=== PATIENT | female | born 1945 | race Caucasian/White ===

== ENCOUNTER 2024-08-10 08:54 | Outpatient (CLI) | payer MEDICARE, OTHER, SELFPAY ==
--- NOTE | ~2024-08-10 | DEXA_ITS ---
Bone Density Report Name: ANDRES BEATTY Age: 78 Sex: Female Ethnicity: White Date of : 1945 Indication: postmenopausal; screening for osteoporosis; history of glucocorticoids; Referring Provider: GRANT, YOU Study: Bone densitometry was performed. Exam Date: August 10, 2024 Accession number: [id number] Bone Density: Region BMD T-score Z-score Classification AP Spine(L1-L4) 0.931 -1.1 1.6 Osteopenia Femoral Neck (Left) 0.726 -1.1 1.1 Osteopenia Total Hip (Left) 0.827 -0.9 1.0 Normal Femoral Neck (Right) 0.649 -1.8 0.4 Osteopenia Total Hip (Right) 0.820 -1.0 1.0 Normal Total Hip Mean 0.823 -1.0 1.0 Normal World Health Organization criteria for BMD impression classify patients as: Normal (T-score at or above -1.0), Osteopenia (T-score between -1.0 and -2.5), or Osteoporosis (T-score at or below -2.5). 10-year Fracture Risk(1): Major Osteoporotic Fracture 21% Hip Fracture 6.2% Reported Risk Factors: [place] (), Neck BMD=0.649, BMI=25.3, glucocorticoids (1) FRAX(R) Version 3.08. Fracture probability calculated for an untreated patient. Fracture probability may be lower if the patient has received treatment. Clinical Information Provided by Patient: Menopause Age: 50 Impression: The patient has low bone mass, based on the Right Femoral Neck T-score. The patient has an estimated ten-year risk of hip fracture of 6.2% and an estimated ten-year risk of major fracture of 21%, based on the WHO FRAX algorithm. The patient has risk factors, including: history of glucocorticoid therapy. Discussion: BONE DENSITY IS LOW AT ONE OR MORE SKELETAL SITES. THE PATIENT'S BMD AND CLINICAL RISK FACTORS CONTRIBUTE TO THIS PATIENT'S HIGH RISK OF FRACTURE. This patient's lowest T-score is low at one or more skeletal sites. It meets the World Health Organization's (WHO) criteria for ?low bone mass? (T-score between -1.0 and -2.5). The patient's 10-year risk of hip fracture and 10 year risk of a major osteoporotic fracture as calculated by FRAX exceeds the threshold where pharmacological therapy is recommended by the National Osteoporosis Foundation (NOF). However, all treatment decisions require clinical judgment and consideration of individual patient factors, including patient preferences, comorbidities, previous drug use, risk factors not captured in the FRAX model (e.g., frailty, falls, vitamin D deficiency, increased bone turnover, interval significant decline in bone density) and possible under or overestimation of fracture risk by FRAX. The patient should follow a healthful lifestyle (good nutrition with adequate calcium and vitamin D, and appropriate weight-bearing exercise). Follow-Up: Consider a repeat BMD and Vertebral Fracture Assessment (VFA) exam in 2 years or sooner if medically necessary, to reassess this patient's status. Reported by: VENITA on 08/10/2024 9:48:00 AM. Reviewed, dictated and finalized at location ANorah COWAN
--- NOTE | ~2024-08-10 | MM_ITS ---
EXAMINATION: MM screening sylvain BI w irma HISTORY: Screening TECHNIQUE: Craniocaudal and mediolateral oblique 3-D tomosynthesis images were obtained and synthetic 2-D images were generated. CAD analysis was submitted and interpreted. COMPARISON: 03/22/2008 BREAST PARENCHYMAL COMPOSITION: Not dense: There are scattered areas of fibroglandular density. FINDINGS: There is no evidence of suspicious mass, calcification, or architectural distortion to sugg est malignancy in either breast. There has been no suspicious interval change. IMPRESSION: 1. No mammographic evidence of malignancy. 2. Recommend routine screening mammography in one year. BI-RADS Category 1: Negative Reviewed, dictated and finalized at location B. ICATION AND LAYOUT CRAFTSMAN
--- OUTSIDE RECORDS SUMMARY | 2024-08-10 09:26 | XMS_ITS ---
Author Organization Unknown Medications Medication Instructions Effective Dates (start - stop) Status atorvastatin 40 MG Oral Tablet 2023-10-01 T00:00:00Z - Completed doxycycline hyclate 100 MG O ral Capsule - Completed mycophenolate mofetil 500 MG Oral Tablet - Completed mycophenolate mofetil 500 MG Oral Tablet - Completed erythromycin 0.005 MG/MG Ophthalmic Ointment - Completed metoprolol tartrate 25 MG Or al Tablet - Completed atorvastatin 40 MG Oral Tablet 2023-12-30 T00:00:00Z - Completed mycophenolate mofetil 500 MG Oral Tablet - Completed amlodipine 10 MG Oral Tablet [id number] 0:00:00Z - Completed metoprolol tartrate 25 MG Or al Tablet - Completed ergocalciferol 1.25 MG Oral Capsule - Completed prednisone 5 MG Oral Tablet [id number] :00:00Z - Completed metoprolol tartrate 25 MG Or al Tablet - Completed ergocalciferol 1.25 MG Oral Capsule - Completed tacrolimus 1 MG Oral Capsule [id number] 0:00:00Z - Completed atorvastatin 40 MG Oral Tablet 2023-04-01 T00:00:00Z - Completed mycophenolate mofetil 500 MG Oral Tablet - Completed amlodipine 10 MG Oral Tablet [id number] 0:00:00Z - Completed metoprolol tartrate 25 MG Or al Tablet - Completed ergocalciferol 1.25 MG Oral Capsule - Completed tacrolimus 1 MG Oral Capsule [id number] 0:00:00Z - Completed prednisone 5 MG Oral Tablet [id number] :00:00Z - Completed tacrolimus 1 MG Oral Capsule [id number] 0:00:00Z - Completed prednisone 5 MG Oral Tablet [id number] :00:00Z - Completed amlodipine 10 MG Oral Tablet [id number] 0:00:00Z - Completed prednisone 5 MG Oral Tablet [id number] :00:00Z - Completed atorvastatin 40 MG Oral Tablet 2023-07-01 T00:00:00Z - Completed tacrolimus 1 MG Oral Capsule [id number] 0:00:00Z - Completed Patient Care team information Name Category Status Period Participants - - Proposed period not known -
--- OUTSIDE RECORDS SUMMARY | 2024-08-10 09:26 | XMS_ITS | Encounter Summary ---
Author Organization [facility] Address [address] [facility] [place] [address] Phone Care Team Providers Care Truck Chauffeur Name Role Phone Tatyana Reynoso Primary Care Provider + Nilsa Torres Unavailable Unavailable Reason for Visit * Reason Comments Medication Refill Encounter Details Date Type Department Care Team (Late st Contact Info) Description 05/06/2020 Refill [facility] [address] [place] [address] Tatyana Reynoso PAC [address] [place] [address] Medication Refill Social History Tobacco Use Types Packs/Day Years Used Date Smoking Tobacco: Never Smokeless Tobacco: Never Alcohol Use Standard Drinks/Week Comments No 0 (1 standard drink = 0.6 oz pur e alcohol) PHQ-2 Answer Date Recorded Total Score - Questions 1-9 0 10/06 Comments No Sex and Gender Information Value Date Recorded Sex Assigned at Not on file Legal Sex Female 9:35 PM CDT Gender Identity Not on file Sexual Orientation Not on file documented as of this encounter Miscellaneous Notes * Telephone Encounter - Nneka Vela RN - 05/08/2020 10:39 AM CST Medication failed the protocol, provider to review and approve the medication order if appropriate. Requested Prescriptions Pending Prescriptions Disp Refills amLODIPine (NORVASC) 10 MG Tablet [Pharmacy Med Name: AMLODIPINE BESYLATE 10 MG TAB] 90 Tab 2 Sig: TAKE ONE TABLET BY MOUTH ONCE DAILY Cardiovascular: Calcium Channel Blockers Failed - 05/06/2020 10:04 AM Failed - Last BP in normal range BP Readings from Last 1 Encounters: 02/21/20 143/77 Passed - Valid encounter within last 12 months Past Office Visits Recent Outpatient Visits 5 months ago Essential hypertension [facility] - Tatyana Gloria PAC 6 months ago Abscess of thumbnail of right hand [facility] - Amado Vogel MD 6 months ago Acute paronychia of thumb, left [facility] APN, 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 1 year ago Essential hypertension [facility] 1 year ago Essential hypertension [facility] Upcoming Appointments MEDICAL HOUSEKEEPER - Recent and Past Visits Recent Visits Date Type Provider Dept 11/21/19 Office Visit Tatyana Reynoso PAC [facility] 11/03/19 Office Visit Amado Weldon MD [facility] 10/31/19 Telemedicine Leah Hung APN, CNP [facility] 04/15/19 Office Visit Tatyana Reynoso PAC [facility] Showing recent visits within past 460 days with a meds authorizing provider and meeting all other requirements Future Appointments No visits were found meeting these conditions. Showing future appointments within next 90 days with a meds authorizing provider and meeting all other requirements KILN WORKER documented in this encounter Plan of Treatment Upcoming Encounters Date Type Department Care Team (Late st Contact Info) Description 07/19/2025 11:00 AM LIME KILN WORKER Office Visit [facility] [place] [address] [place] [address] Tatyana Reynoso PAC [address] [place] [address] documented as of this encounter Visit Diagnoses Not on filedocumented in this encounter Additional Health Concerns Assessment Noted Time PHQ-9 Depression Total Score: 0 11/03/19 20 4:00 PM CDT documented as of this encounter Care Teams Truck Chauffeur Relationship Specialty Start Date End Date Tatyana Reynoso PAC [address] [place] [address] PCP - General Physician Career Developer 09/22/17 Nilsa Torres 11/24/23 11/24/23 documented as of this encounter
--- OUTSIDE RECORDS SUMMARY | 2024-08-10 09:26 | XMS_ITS | Clinical Summary ---
Author Organization [facility] Address [address], [address] [address] Phone Care Team Providers Care Fireworks Maker Name Role Phone Tatyana Reynoso Primary Care Provider + Allergies Active Allergy Reactions Criticality Noted Date Comments Sulfa Antibiotics Unknown Medications tacrolimus (PROGRAF) 1 MG Capsule Take 1 mg by mouth every morning. Active predniSONE (DELTASONE) 5 MG Tablet Take 5 mg by mouth every morning. Use as directed. Active atorvastatin (LIPITOR) 40 MG Tablet Take 40 mg by mouth nightly. Active Denosumab (PROLIA SC) Take 1 shot every 6 months Active metoprolol tartrate (LOPRESSOR) 25 MG Tablet Take 1 Tab by mouth 2 times daily. 5 Active mycophenolate (CELLCEPT) 500 MG Tablet Take 1 Tab by mouth 2 times daily. 6 Active ergocalciferol (VITAMIN D) 53399 UNIT Capsule Take 1 capsule three times a month 6 Active Famotidine (PEPCID PO) Take 10 mg by mouth 2 times daily. Active Magnesium Oxide 400 MG Capsule Take by mouth. Active IBUPROFEN IB PO Take 3 Tablets by mouth if needed (pain). Active amLODIPine (NORVASC) 10 MG TabletIndications :Essential hypertension TAKE 1 TABLET BY MOUTH EVERY DAY 90 Tablet 1 4 Active Active Problems Problem Noted Date Diagnosed Date History of kidney transplant 09/22/2017 History of basal cell carcinoma (BCC) of skin Dysuria 08/04/2016 Renal failure Overview (05/24/2015): POLYCYSTIC KIDNEY HTN (hypertension) GERD (gastroesophageal reflux disease) Encounters Date Type Department Care Team Description 07/18/2024 11:00 AM CUSTOMER SERVICE MANAGER Office Visit [facility] [address] [place] [address] Tatyana Reynoso PAC Essential hypertension (Primary Dx); Hyperlipidemia, unspecified hyperlipidemia type; Low bone mass; Gastroesophageal reflux disease without esophagitis Discharge Disposition: Discharged to home or Selfcare 07/18/2024 Travel 06/09/2024 [facility] [address] [place] [address] Tatyana Reynoso PAC Medication Refill from Last 3 Months Immunizations Immunization Administration Dates Next Due Covid-19, Mrna, Lnp-s, PF, 1 00 mcg/0.5 mL Dose (Moderna) 09/27/2020,08/30/2020 Influenza Vaccine greater than 3 yrs 04/05/2024, 04/05/2014 Influenza Vaccine, Quadrivalent, PF 09/23/2018 Influenza Vaccine,unspecifie d Formulation 04/01/2023 Influenza, High-dose, Quadrivalent 03/26/2022, Influenza, Quadrivalent, Adjuvanted 04/01/2023,1 Influenza, Seasonal, Injecta ble, Undefined 04/05/2014 Influenza, high-dose, trivalent, PF 03/07,04/02/2017,04/01/2017,2015,03/14/2015 PUR FLU HIGH DOSE (FLUZONE) 03/24/2016 Pneumococcal Vaccine - 13 Valent 12/21/2013 Pneumococcal Vaccine Adult - 23 Valent 12/24/2015,12/24/2015,12/15/2001 Family History Medical History Relation Name Comments Cancer Brother throacic Stroke Brother Cancer Father brain Other-comment Mother polycystic kid ana disease Breast Cancer Sister 1 Cancer Sister 2 stomach Relation Name Status Comments Brother Other Father Mother Sister 1 Sister 2 Social History Tobacco Use Types Packs/Day Years Used Date Smoking Tobacco: Never Smokeless Tobacco: Never Tobacco Cessation:Counseling Given: Yes Alcohol Use Standard Drinks/Week Comments No 0 (1 standard drink = 0.6 oz pur e alcohol) PHQ-2 Answer Date Recorded Total Score - Questions 1-9 0 07/06 Comments No Sex and Gender Information Value Date Recorded Sex Assigned at Not on file Legal Sex Female 9:35 PM CDT Gender Identity Not on file Sexual Orientation Not on file Last Filed Vital Signs Vital Sign Reading Time Taken Comments Blood Pressure 116/62 07/18/2024 10:51 AM CUSTOMER SERVICE MANAGER Pulse 66 07/18/2024 10:51 AM CUSTOMER SERVICE MANAGER Temperature 36.4 ??C (97.5 ??F) 07/18/2024 10:[address] Respiratory Rate 14 06/11/2022 9:45 AM CUSTOMER SERVICE MANAGER Oxygen Saturation 99% 07/18/2024 10:51 AM CUSTOMER SERVICE MANAGER Inhaled Oxygen Concentration - - Weight 73.9 kg (163 lb) 07/18/2024 10:51 AM CUSTOMER SERVICE MANAGER Height 172.7 cm (5' 8 ) 07/18/2024 10:51 AM CUSTOMER SERVICE MANAGER Body Mass Index 24.78 07/18/2024 10:51 AM CUSTOMER SERVICE MANAGER Plan of Treatment Upcoming Encounters Date Type Department Care Team (Late st Contact Info) Description 07/19/2025 11:00 AM CUSTOMER SERVICE MANAGER Office Visit [facility] [address] [place] [address] Tatyana Reynoso, PAC [address] [place] [address] Health Maintenance Due Date Last Done Comments Hepatitis C Virus (HCV) Screening 1945 TdaP Immunization 1945 Zoster Immunization (1 of 2) 1964 Respiratory Syncytial Virus (RSV) Immunization (Adult) (1 - 1-dose 75+ series) 2020 DEXA Bone Density 05/19/2024 05/19/2022, , 04/18/2020, Additional history exists SARS-COV-2 Immunization (8 - Moderna risk season) 2024 03/23/2024, 04/15/2023, 03/26/2022, Additional history exists Pneumococcal Immunization (50+ years) Completed 12/24/2015, 12/24/2015, 12/21/2013, Additional history exists Pneumococcal Immunization Combined Discontinued 12/24/2015, 12/24/2015, 12/21/2013, Additional history exists Colonoscopy High Risk Discontinued 02/21/2020, 015 Colonoscopy Discontinued 02/21/2020, 10/04/2014 Colorectal Cancer Screening Discontinued Mammogram Discontinued 06/01/2023, 05/06, 05/13/2021, Additional history exists Influenza Immunization Completed , 03/23/2024, 04/01/2023, Additional history exists Cologuard Discontinued Hepatitis B Immunization Aged Out No longer eligible based on patient's age to complete this topic Immunochemical Fecal Occult Blood Discontinued Meningococcal Immunization (ACWY) Aged Out No longer eligible based on patient's age to complete this topic Rotavirus Immunization Aged Out No lo nger eligible based on patient's age to complete this topic Medical Devices Implanted Type Area Circuit Board Inspector Device Identifier Shelf Expiration Date Model / Serial / Lot Clip 360 Resolution 235cm - [id number] Implanted:Qty: 1 on 02/21/2020 by Lee Carvalho DO at [facility] IMPLANT Tail 12/18/2022 [id number] / [id number] / [id number] Procedures Procedure Name Priority Date/Time Associated Diagnosis Comments MAMMOGRAM BILATERAL GENERIC 06/01/2023 12:00 AM CUSTOMER SERVICE MANAGER BONE DENSITY GENERIC 05/19/2022 12:00 AM CUSTOMER SERVICE MANAGER HM COLONOSCOPY Routine 10/04/2014 from Last 3 Months or Most Recently Relevant to Health Maintenance Results * MAMMOGRAM BILATERAL MISCELLANEOUS (06/01/2023 12:00 AM CUSTOMER SERVICE MANAGER) 06/01/2023 us Provider Scan IMG MAMMO ORDERABLES Final Resul t SCAN * BONE DENSITY GENERIC SCAN (05/19/2022 12:00 AM CUSTOMER SERVICE MANAGER) 05/19/2022 us Not On File Provider IMG DEXA ORDERABLES Final R esult SCAN * HM COLONOSCOPY (10/04/2014) us Ta Craven DO PROCEDURE/MINOR SURGICAL ORDERAB LES Edited Result - Final from Last 3 Months or Most Recently Relevant to Health Maintenance Insurance MEDICARE [facility] Care Teams Fireworks Maker Relationship Specialty Start Date End Date Tatyana Reynoso PAC [address] [place] [address] PCP - General Physician Event Planning Manager 09/22/17
--- OUTSIDE RECORDS SUMMARY | 2024-08-10 09:26 | XMS_ITS | Clinical Summary ---
Author Organization [facility] Address [address] [place] [address] Phone Care Team Providers Care Band Cutting Machine Operator Name Role Phone Ta Craven DO Primary Care Provider [phone] Allergies Active Allergy Reactions Criticality Noted Date Comments Sulfa (Sulfonamide Antibiotics) Nausea and Vomiting Low 03/25/2012 Medications atorvastatin (LIPITOR) 40 mg Oral tablet Take 40 mg by mouth Daily LATE. Active amLODIPine (NORVASC) 10 mg Oral tablet Take 10 mg by mouth daily at bedtime. Active aspirin (JET) 81 mg Oral Tab Take 81 mg by mouth daily with breakfast. Active metoprolol tartrate (LOPRESSOR) 25 mg Oral tablet Take 25 mg by mouth 2 times daily. Active mycophenolate mofetil (CELLCEPT) 500 mg Oral tablet Take 500 mg by mouth 2 times daily. Active omeprazole (PRILOSEC) 20 mg Oral CpDR Take 20 mg by mouth daily at bedtime. Active predniSONE (DELTASONE) 5 mg Oral tablet Take 5 mg by mouth daily with breakfast. Active tacrolimus (PROGRAF) 1 mg Oral capsule Take 1 mg by mouth daily. Active denosumab (PROLIA) 60 mg/mL subCUT SyrgIndications :twice a year Inject 60 mg by subcutaneous injection one time only. Indications: twice a year Active cholecalciferol , vitamin D3, 50,000 unit Oral Cap Take 1 Cap by mouth every 2 weeks. Active HYDROcodone-diamante taminophen (NORCO) 5-325 mg Oral tablet Take 1 Tab by mouth every 4 hours as needed for Pain, Mild (For Pain Scale 1-3). 30 Tab 0 2 Active cefadroxil (DURICEF) 500 mg Oral capsule Take 1 Cap by mouth every 12 hours. 20 Cap 0 2 Active Encounters Date Type Department Care Team Description 08/02/2024 External Device Data STL ABSTRACTION Provider, Abstract 07/27/2024 External Device Data STL ABSTRACTION Provider, Abstract 07/27/2024 External Device Data STL ABSTRACTION Provider, Abstract from Last 3 Months Social History Tobacco Use Types Packs/Day Years Used Date Smoking Tobacco: Never Alcohol Use Standard Drinks/Week Comments No 0 (1 standard drink = 0.6 oz pur e alcohol) Comments Unknown Sex and Gender Information Value Date Recorded Sex Assigned at Not on file Legal Sex Female 6:11 AM JAWBONE BREAKER Gender Identity Not on file Sexual Orientation Not on file Last Filed Vital Signs Vital Sign Reading Time Taken Comments Blood Pressure 121/71 03/26/2012 4:39 PM CDT Pulse 70 03/26/2012 4:39 PM CDT Temperature 37.1 ??C (98.8 ??F) 03/26/2012 4:39 PM CD T Respiratory Rate 18 03/26/2012 4:39 PM CDT Oxygen Saturation 93% 03/26/2012 4:39 PM CDT Inhaled Oxygen Concentration - - Weight 78.9 kg (174 lb) 03/26/2012 9:31 AM CDT Height 172.7 cm (5' 8 ) 03/25/2012 12:01 PM CDT Body Mass Index 26.46 03/25/2012 12:01 PM CDT Plan of Treatment Health Maintenance Due Date Last Done Comments DTAP/TDAP/TD VACCINES (1 - Tdap) 1964 ZOSTER VACCINE (1 of 2) 1964 COVID-19 Vaccine (3 - Modern a risk series) 10/25/2020 09/27/2020, 08/30/2020 RSV VACCINE (60+ or ) (1 - 1-dose 75+ series) 2020 INFLUENZA VACCINE (#1) 2024 2, 04/23/2021, 04/10/2020, Additional history exists COLORECTAL SCREENING Discontinued 10/04/2014 Colorectal Cancer Screening Discontinued PNEUMOCOCCAL VACCINE 65+ YEARS Completed 0 12/24/2015, 12/21/2013, 12/15/2001 OSTEOPOROSIS SCREENING Completed 02/25/2018, 2015 FIT-DNA Q 3 years Discontinued FIT/FOBT Q 1 year Discontinued Flex Sig/CT Colonography Q 5 years Discontinued Insurance MEDICARE PART A AND B [employer] ACCESS HMO Advance Directives For more information, please contact: [phone] * Full Code (Latest Code Status on File) Date Activated Date Inactivated Comments 03/26/2012 12:57 PM 03/26/2012 7:04 PM * Full Code Date Activated Date Inactivated Comments 03/26/2012 9:34 AM 03/26/2012 12:57 PM Care Teams Band Cutting Machine Operator Relationship Specialty Start Date End Date Ta Craven DO [address] [address] PCP - General Family Practice 03/25/12
--- OUTSIDE RECORDS SUMMARY | 2024-08-10 09:26 | XMS_ITS | Encounter Summary ---
Author Organization [facility] Address [address] [facility] [place] [address] Phone Care Team Providers Care Infectious Waste Technician Name Role Phone Tatyana Reynoso Primary Care Provider + Nilsa Torres Unavailable Unavailable Reason for Referral * Radiology Services (Routine) - Closed Specialty Diagnoses / Procedures Referred By So esparza Referred To Contact Radiology Diagnoses Preop testing Pain of left hand Procedures EKG 12 LEAD Venkata Rosenthal MD Phone: tel: fax: Referral ID Status Reason Start Date Expiration Date Visits Re quested Visits Authorized [id number] Closed 09/25/2020 1 1 Encounter Details Date Type Department Care Team (Latest Contact Info) Description 09/25/2020 Transcribe Orders [facility] Admitting [address] [place] [id number] Venkata Rosenthal MD [address] [place] [address] Preop testing (Primary Dx); Pain of left hand Social History Tobacco Use Types Packs/Day Years [...] on file Sexual Orientation Not on file COVID-19 Exposure Response Date Recorded In the last month, have you been in contact with someone who was confirmed or suspected to have Coronavirus / COVID-19? No / Unsure 09/25/2020 12:11 PM CDT documented as of this encounter Plan of Treatment Upcoming Encounters Date Type Department Care Team (Late st Contact Info) Description 07/19/2025 11:00 AM NARCOTICS DETECTIVE Office [facility] [address] [place] [address] Tatyana Reynoso, PAC [address] [place] [address] documented as of this encounter Results * EKG 12 LEAD (09/25/2020 12:59 PM CDT) Ventricular Rate BPM EXTERNAL EKG Atrial Rate BPM EXTERNAL EKG P-R Interval 186 ms EXTERNAL EKG QRS Duration 86 ms EXTERNAL EKG Q-T Duration 408 ms EXTERNAL EKG QTC CALCULATION 391 ms EXTERNAL EKG P Hamilton -5 degrees EXTERNAL EKG R Hamilton 35 degrees EXTERNAL EKG T Hamilton 3 degrees EXTERNAL EKG 09/25/2020 12:5 9 PM CDT Impressions EXTERNAL EKG - 09/26/2020 8:55 AM CDT Sinus rhythm Inferior T wave abnormality is nonspecific Comparison Summary: No serial comparison made Summary: Borderline ECG Confirmed by Alen Carney [id number] on 09/26/2020 8:55:01 AM Narrative Procedure Note Roxi Lowry MD - 09/26/2020 IMPRESSION: Sinus rhythm Inferior T wave abnormality is nonspecific Comparison Summary: No serial comparison made Summary: Borderline ECG Confirmed by Alen Carney [id number] on 09/26/2020 8:55:01 AM us Venkata Rosenthal MD IMG ECG ORDERABLES Final Result EXTERNAL EKG * (ABNORMAL) CMP (COMPREHENSIVE METABOLIC PANEL) (09/25/2020 12:25 PM CDT) SODIUM 137 136 - 144 mmol/L 09/25/2020 3:42 PM CDT [facility] POTASSIUM 4.5 3.5 - 5.1 mmol/L 09/25/2020 3:42 PM CDT [facility] CHLORIDE 102 100 - 110 mmol/L 09/25/2020 3:42 PM CDT [facility] CO2, VENOUS 26 22 - 32 mmol/L 09/25/2020 3:42 PM CDT [facility] ANION GAP 13.5 8.0 - 20.0 mmol/L 09/25/2020 3:42 PM CDT [facility] GLUCOSE 115(H) 70 - 99 mg/dL 09/25/2020 3:42 PM CDT [facility] BUN 13 8 - 23 mg/dL 09/25/2020 3:42 PM CDT [facility] CREATININE, BLOOD 0.77 0.60 - 1.10 mg/dL 09/25/2020 3:42 PM CDT [facility] BUN/CREATININE RATIO 17 12 - 20 ratio 09/25/2020 3:42 PM CDT [facility] TOTAL PROTEIN 7.6 6.0 - 8.3 g/dL 09/25/2020 3:42 PM CDT [facility] ALBUMIN 4.2 3.5 - 5.2 g/dL 09/25/2020 3:42 PM CDT [facility] Comment: The colormetric methods used for the determination of Albumin may lead to falsely elevated test results in patients suffering from renal failure or insufficiency due to interference with other proteins. A/G RATIO 1.2 1.0 - 2.0 09/25/2020 3:42 PM CDT [facility] CALCIUM 9.6 8.9 - 10.3 mg/dL 09/25/2020 3:42 PM CDT [facility] T BILI 0.5 <=1.2 mg/dL 09/25/2020 3:42 PM CDT [facility] SGOT (AST) 16 <=32 U/L 09/25/2020 3:42 PM CDT [facility] SGPT (ALT) 14 <=41 U/L 09/25/2020 3:42 PM CDT [facility] ALKALINE PHOSPHATASE 108(H) 35 - 105 U/L 09/25/2020 3:42 PM CDT [facility] GFR, EST. NONAFRICAN >60 >=60 09/25/2020 3:42 PM CDT [facility] GFR, EST. >60 >=60 021 3:42 PM CDT [facility] Comment: Creatinine Clearance is the preferred criteria for selecting drug dose adjustments in renally impaired patients. ??The GFR is provided as additional pertinent clinical information. GFR is reported in mL/min/1.73 sq m. IS THE PATIENT REQUIRED TO BE FASTING? No 09/25/2020 3:42 PM CDT [facility] Blood Venipuncture / Unknown 09/25/2020 12:25 PM CDT 09/25/2020 1:18 PM CDT us Venkata Rosenthal MD CHEMISTRY ORDERABLES Final Resul t [facility] [address] [place] [address] documented in this encounter Visit Diagnoses Diagnosis Preop testing- Primary Preoperative examination, unspecified Pain of left hand Pain in limb Preop testing Preoperative examination, unspecified Pain of left hand Pain in limb documented in this encounter Additional Health Concerns Assessment Noted Time PHQ-9 Depression Total Score: 0 11/03/19 4:00 PM CDT documented as of this encounter Care Teams Infectious Waste Technician Relationship Specialty Start Date End Date Tatyana Reynoso PAC [address] [place] [address] PCP - General Physician Bus Person Dishwasher 09/22/17 Nilsa Torres 11/24/23 11/24/23 documented as of this encounter
--- OUTSIDE RECORDS SUMMARY | 2024-08-10 09:26 | XMS_ITS | Encounter Summary ---
Author Organization [facility] Address [address] [facility] [place] [address] Phone Care Team Providers Care Metal Bonding Crib Attendant Name Role Phone Tatyana Reynoso Primary Care Provider + Nilsa Torres Unavailable Unavailable Reason for Visit * Reason Onset Date Comments Medication Refill Medication Refill 05/24/2021 Encounter Details Date Type Department Care Team (Late st Contact Info) Description 05/24/2021 Telephone [facility] - Family Medicine [facility] [address] [place] [address] Tatyana Reynoso PAC [address] [place] [address] Medication Refill; Medication Refill Social History Tobacco Use Types [...] encounter Miscellaneous Notes * Telephone Encounter - Jolanta Rodas RMA - 06/04/2021 3:38 PM DOCUMENT CONTROL SPECIALIST Called Pt and scheduled a visit with Tatyana on 06/10/21 at 10:30am MENT CONTROL SPECIALIST * Telephone Encounter - Nneka Vela RN - 05/24/2021 11:34 AM CST Patient needs an office visit with Tatyanagee george appt 11/23/19 MENT CONTROL SPECIALIST documented in this encounter Plan of Treatment Upcoming Encounters Date Type Department Care Team (Late st Contact Info) Description 07/19/2025 11:00 AM DOCUMENT CONTROL SPECIALIST Office Visit [facility] - Family Medicine [facility] [address] [place] [address] Tatyana Reynoso PAC [address] [place] [address] documented as of this encounter Visit Diagnoses Not on filedocumented in this encounter Additional Health Concerns Assessment Noted Time PHQ-9 Depression Total Score: 0 11/03/19 20 4:00 PM CDT documented as of this encounter Care Teams Metal Bonding Crib Attendant Relationship Specialty Start Date End Date Tatyana Reynoso PAC [address] [place] [address] PCP - General Physician [place] Operator 09/22/17 Nilsa Torres 11/24/23 11/24/23 documented as of this encounter
--- OUTSIDE RECORDS SUMMARY | 2024-08-10 09:26 | XMS_ITS | Referral Summary ---
Author Organization [facility] Address [address] [place] [address] Phone Care Team Providers Care Licensed Insurance Sales Agent Name Role Phone Franklin Morris RN Unavailable Tatyana Reynoso Primary Care Provider [phone] Encounters Date Type Department Care Team Description 06/17/2024 8:45 AM OFFSET PRINTING PRESSMEN Ancillary Procedure [facility] Imaging at [address] [phone] Closed nondisplaced comminuted fracture of left patella with routine healing, subsequent encounter 06/17/2024 8:30 AM OFFSET PRINTING PRESSMEN Office Visit [facility] Primary Care at [address] [place] [phone] Jayy Malagon DO Closed nondisplaced comminuted fracture of left patella with routine healing, subsequent encounter (Primary Dx) 06/01/2024 Orders Only [facility] [address] [facility] 5[address] [place] [address] [place] [address] Selene Aguiar MD 05/27/2024 9:00 AM OFFSET PRINTING PRESSMEN Ancillary Procedure [facility] Imaging at [address] [address] Closed nondisplaced comminuted fracture of left patella with routine healing, subsequent encounter 05/27/2024 8:45 AM OFFSET PRINTING PRESSMEN Office Visit [facility] Primary Care at [address] [place] [address] Jayy Malagon, Closed nondisplaced comminuted fracture of left patella with routine healing, subsequent encounter (Primary Dx) 05/13/2024 9:30 AM OFFSET PRINTING PRESSMEN Ancillary Procedure [facility] Imaging at [address] [phone] Acute pain of left knee; Closed nondisplaced comminuted fracture of left patella with routine healing, subsequent encounter 05/13/2024 9:45 AM OFFSET PRINTING PRESSMEN Office Visit [facility] Primary Care at [address] [place] [phone] Jayy Malagon, Acute pain of left knee (Primary Dx); Closed nondisplaced comminuted fracture of left patella with routine healing, subsequent encounter from Last 3 Months Allergies Active Allergy Reactions Criticality Noted Date Comments Sulfa (Sulfonamide Antibiotics) Nausea And Vomiting Low 03/25/2012 Medications denosumab (PROLIA) 60 mg/mL syringeIndicatio ns:postmenopausa l osteoporosis and high fracture risk Inject 1 mL (60 mg total) under the skin every 6 (six) months Next dose to be 2023 10/08/19 12 Active aspirin-calcium carbonate 81 mg-300 mg calcium(777 mg) tablet Take 81 mg by mouth Active famotidine (PEPCID) 10 mg tabletIndication s:Heartburn Take 1 tablet (10 mg total) by mouth 2 (two) times a day Active amLODIPine (NORVASC) 10 mg tabletIndication s:hypertension Take 1 tablet (10 mg total) by mouth every evening Active ergocalciferol (VITAMIN D) 50,000 unit capsuleIndicatio ns:Vitamin D Deficiency Take 1 capsule (50,000 Units total) by mouth every 30 (thirty) days 10/01/19 24 Active magnesium oxide 400 mg magnesium capsuleIndicatio ns:supplement Take 1 tablet by mouth heel sprayer first before breakfast Active erythromycin (ILOTYCIN) ophthalmic ointment Apply to eyelid incisions [address] ointment in the eyes if they are irritated. 3.5 g 3 12/29/19 24 Active Additional Information Patient not taking.Reported on 02/03/2024 mycophenolate mofetil (CELLCEPT) 500 mg tablet TAKE 1 TABLET BY MOUTH TWICE A DAY 180 tablet 3 03/25/20 24 Active atorvastatin (LIPITOR) 40 mg tablet TAKE 1 TABLET BY MOUTH EVERY DAY AT NIGHT 90 tablet 3 06/24/20 24 Active predniSONE (DELTASONE) 5 mg tablet Take 1 tablet (5 mg) by mouth daily 90 tablet 3 07/08/19 25 Active tacrolimus 1 mg immediate-releas e capsule TAKE 1 CAPSULE BY MOUTH 2 TIMES A DAY. 180 capsule 3 07/09/19 25 Active metoprolol tartrate (LOPRESSOR) 25 mg immediate release tablet Take 1 tablet (25 mg total) by mouth 2 (two) times a day 180 tablet 3 08/09/19 25 Active metoprolol tartrate (LOPRESSOR) 25 mg immediate release tablet TAKE 1 TABLET BY MOUTH TWICE A DAY 180 tablet 3 09/11/19 24 025 Discontin ued(Reord er) Active Problems Patient Care Coordination No te Formatting of this note migh t be different from the original. 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 si delfina 11/23/2023 Encounter for long-term (cur rent) use of high-risk medication 01/17/2019 Gastroesophageal reflux disease without esophagi tis 01/17/2019 Non-melanoma skin cancer 01/17/2019 Aftercare following organ transplant 12/24/2015 Dyslipidemia 12/24/2015 Chronic kidney disease, stage 1 10/07/2010 Hypertension 10/05/2010 Overview (10/16/2017): Description: Hypertension History of kidney transplant 01/21/2010 Immunizations Name Administration Dates Next Due Influenza, Unspecified 04/01/2023 Pneumococcal Conjugate PCV 13 12/21/2013 Pneumococcal Polysaccharide PPV23 12/24/2015 Social History Tobacco Use Types Packs/Day Years Used Date Smoking Tobacco: Never Passive Smoke Exposure: Never Smokeless Tobacco: Never Tobacco Cessation:Counseling Given: Not Answered Alcohol Use Standard Drinks/Week Comments No 0 (1 standard drink = 0.6 oz pur e alcohol) AUDIT-C Answer Date Recorded Q1: How often do you have a drink containing alcohol? Never 12/29/2023 Q2: How many drinks containi ng alcohol do you have on a typical day when you are drinking? Patient does not drink Q3: How often do you have si x or more drinks on one occasion? Never 12/29/2023 Personal Safety Answer Date Recorded Have you ever been in or are you currently in a harmful physical or emotional relationship or is someone making you feel afraid or unsafe? Denies 12/29/2023 Comments Unknown Sex and Gender Information Value Date Recorded Sex Assigned at Not on file Legal Sex Female 8:35 PM OFFSET PRINTING PRESSMEN Gender Identity Not on file Sexual Orientation Not on file Last Filed Vital Signs Vital Sign Reading Time Taken Comments Blood Pressure 129/78 06/17/2024 8:49 AM OFFSET PRINTING PRESSMEN Pulse 77 06/17/2024 8:49 AM OFFSET PRINTING PRESSMEN Temperature 36.5 ??C (97.7 ??F) 12/29/2023 9:10 AM CD T Respiratory Rate 16 04/29/2024 9:50 AM CDT Oxygen Saturation 93% 12/29/2023 9:30 AM CDT Inhaled Oxygen Concentration - - Weight 75.8 kg (167 lb) 06/17/2024 8:49 AM OFFSET PRINTING PRESSMEN Height 172.7 cm (5' 8 ) 06/17/2024 8:49 AM OFFSET PRINTING PRESSMEN Body Mass Index 25.39 06/17/2024 8:49 AM OFFSET PRINTING PRESSMEN Plan of Treatment Not on file Procedures Procedure Name Priority Date/Time Associated Diagnosis Comments XR KNEE LEFT 4 OR MORE VIEWS Schedule Routine, Read Routine (OP Routine) 06/17/2024 8:45 AM OFFSET PRINTING PRESSMEN Closed nondisplaced comminuted fracture of left patella with routine healing, subsequent encounter TACROLIMUS, HIGHLY SENSITIVE, LC/MS/MS Routine 06/01/2024 8:47 AM OFFSET PRINTING PRESSMEN COMPREHENSIVE METABOLIC PANEL Routine 06/01/2024 8:47 AM OFFSET PRINTING PRESSMEN PHOSPHORUS Routine 06/01/2024 8:47 AM OFFSET PRINTING PRESSMEN LIPID PANEL Routine 06/01/2024 8:47 AM OFFSET PRINTING PRESSMEN CBC WITH AUTO DIFFERENTIAL Routine 06/01/2024 8:47 AM OFFSET PRINTING PRESSMEN COPY(IES) SENT TO: Routine 06/01/2024 8: 47 AM OFFSET PRINTING PRESSMEN XR KNEE LEFT 3 VIEWS Schedule Routine, Read Routine (OP Routine) 05/27/2024 8:54 AM OFFSET PRINTING PRESSMEN Closed nondisplaced comminuted fracture of left patella with routine healing, subsequent encounter XR KNEE LEFT 3 VIEWS Schedule Routine, Read Routine (OP Routine) 05/13/2024 9:16 AM OFFSET PRINTING PRESSMEN Acute pain of left knee Closed nondisplaced comminuted fracture of left patella with routine healing, subsequent encounter from Last 3 Months Results * XR Knee Left 4 or More Views (06/17/2024 8:45 AM OFFSET PRINTING PRESSMEN) Anatomical Region Laterality Modality Lower Extremities, Knee Left Digital Radiography 06/18/2024 10:5 0 AM OFFSET PRINTING PRESSMEN Narrative 06/18/2024 10:51 AM OFFSET PRINTING PRESSMEN EXAM DESCRIPTION: XR KNEE LEFT 4 OR MORE VIEWS REASON FOR STUDY: pain ?? Follow up patellar fracture from about 8 weeks ago. ? FINDINGS: Four views submitted with comparison 05/27/2024. There is a healing left inferior patellar pole fracture. ??No new fractures are identified. 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 ??There is no effusion.. IMPRESSION: Healing left inferior patellar pole fracture. THIS IS AN ELECTRONICALLY VERIFIED FINAL REPORT 06/18/2024 10:51 AM - Electronically signed by ??Jayy HERNANDEZ D: ??06/18/2024 10:51 AM T: Report ID: [id number] Reading Location: ??[id number] Procedure Note Jayy Russell MD - 06/18/2024 EXAM DESCRIPTION: XR KNEE LEFT 4 OR MORE VIEWS REASON FOR STUDY: pain Follow up patellar fracture from about 8 weeks ago. FINDINGS: Four views submitted with comparison 05/27/2024. There is a healing left inferior patellar pole fracture. No new fracturesare identified. 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 IMPRESSION: Healing left inferior patellar pole fracture. THIS IS AN ELECTRONICALLY VERIFIED FINAL REPORT 06/18/2024 10:51 AM - Electronically signed by Jayy Russell M.D. T: Report ID: [id number] Reading Location: [place] [address] Jayy Malagon DO IMG XR PROCEDURES Fanny l Result * Tacrolimus, Highly Sensitive, LC/MS/MS (06/01/2024 8:47 AM OFFSET PRINTING PRESSMEN) Tacrolimus, Highly Sensitive, LC/MS/MS 6.9 mcg/L [facility] Comment: No definitive therapeutic or toxic ranges have been established. Optimal blood drug levels are influenced by type of transplant, patient response, time post- transplant, co-administration of other drugs, and drug formulation. The following trough range is a suggested guideline: 5.0-20.0 mcg/L. 06/01/2024 8:47 AM OFFSET PRINTING PRESSMEN 06/01/2024 8:48 AM OFFSET PRINTING PRESSMEN Narrative [facility] - 06/03/2024 2:35 PM OFFSET PRINTING PRESSMEN FASTING:YES FASTING: YES Selene Dooley MD LAB BLOOD ORDERAB LES Final Result [facility] [address] [place] [address] * COPY(IES) SENT TO: (06/01/2024 8:47 AM OFFSET PRINTING PRESSMEN) COPY(IES) SENT TO: [facility] Comment: ?[facility] - COPY TO ACCT ?[address] [facility] ?[place] [address] 06/01/2024 8:47 AM OFFSET PRINTING PRESSMEN 06/01/2024 8:48 AM OFFSET PRINTING PRESSMEN Narrative [facility] - 06/03/2024 2:35 PM OFFSET PRINTING PRESSMEN FASTING:YES FASTING: YES Selene Dooley MD LAB BLOOD ORDERAB LES Final Result [facility] * (ABNORMAL) CBC with auto differential (06/01/2024 8:47 AM OFFSET PRINTING PRESSMEN) Pathologist [facility] WBC 9.2 3.8 - 10.8 Thousand/u L [facility] RBC, POC 4.40 3.80 - 5.10 Million/uL [facility] Hgb 12.9 11.7 - 15.5 g/dL [facility] Hct 41.2 35.0 - 45.0 % [facility] MCV 93.6 80.0 - 100.0 fL [facility] MCH 29.3 27.0 - 33.0 pg [facility] MCHC 31.3(L) 32.0 - 36.0 g/dL [facility] Comment: For adults, a slight decrease in the calculated MCHC value (in the range of 30 to 32 g/dL) is most likely not clinically significant; however, it should be interpreted with caution in correlation with other red cell parameters and the patient's clinical condition. Rdw 13.5 11.0 - 15.0 % [facility] Platelets 233 140 - 400 Thousand/u L [facility] MPV 10.6 7.5 - 12.5 fL [facility] Neutrophils, abs 5,732 1,500 - 7,800 cells/uL [facility] Lymphocytes, abs 2,088 850 - 3,900 cells/uL [facility] Monocyte abs 938 200 - 950 cells/uL [facility] Eosinophils, abs 377 15 - 500 cells/uL [facility] Basophils, abs 64 0 - 200 cells/uL [facility] Neutrophils 62.3 % [facility] Lymphocyte pct 22.7 % [facility] Monocytes 10.2 % [facility] Eosinophils 4.1 % [facility] Basophils 0.7 % [facility] 06/01/2024 8:47 AM OFFSET PRINTING PRESSMEN 06/01/2024 8:48 AM OFFSET PRINTING PRESSMEN Narrative [facility] - 06/03/2024 2:35 PM OFFSET PRINTING PRESSMEN FASTING:YES FASTING: YES Selene Dooley MD LAB BLOOD ORDERAB LES Final Result Performing Organization Address City/[facility]/ZIP Co de Phone Number [facility] [address] [place] [address] * Phosphorus (06/01/2024 8:47 AM OFFSET PRINTING PRESSMEN) Pathologist [facility] Phosphorus, sr 3.6 2.1 - 4.3 mg/dL [facility] [employer] 06/01/2024 8:47 AM OFFSET PRINTING PRESSMEN 06/01/2024 8:48 AM OFFSET PRINTING PRESSMEN Narrative [facility] - 06/03/2024 2:35 PM OFFSET PRINTING PRESSMEN FASTING:YES FASTING: YES Selene Dooley MD LAB BLOOD ORDERAB LES Final Result Performing Organization Address [facility] Co de Phone Number [facility] [address] [place] [address] * (ABNORMAL) Lipid panel (06/01/2024 8:47 AM OFFSET PRINTING PRESSMEN) [facility] Cholesterol 120 <200 mg/dL [facility] HDL 49(L) > OR = 50 mg/dL [facility] Triglycerides 81 <150 mg/dL [facility] LDL 55 mg/dL (calc) [facility] Comment: Reference range: <100 Desirable range <100 mg/dL for primary prevention; ?? <70 mg/dL for patients with CHD or diabetic patients with > or = 2 CHD risk factors. LDL-C is now calculated using the Alis calculation, which is a validated novel method providing better accuracy than the Friedewald equation in the estimation of LDL-C. Yogesh MITCHELL et al. DONNA. 2013;310(19): 4269-4341 (http://education.Zulahoo/faq/QAK545) Chol/HDL ratio 2.4 <5.0 (calc) [employer] Non-HDL, (LDL+VLDL) 71 <130 mg/dL (calc) [employer] Comment: For patients with diabetes plus 1 major ASCVD risk factor, treating to a non-HDL-C goal of <100 mg/dL (LDL-C of <70 mg/dL) is considered a therapeutic option. 06/01/2024 8:47 AM [employer]SET PRINTING PRESSMEN 06/01/2024 8:48 AM OFFSET PRINTING PRESSMEN Narrative [facility] - 06/03/2024 2:35 PM OFFSET PRINTING PRESSMEN FASTING:YES FASTING: YES us Selene Dooley MD LAB BLOOD ORDERAB LES Final Result [facility] [facility] Center[facility] [address] [place] [address] * (ABNORMAL) Comprehensive metabolic panel (06/01/2024 8:47 AM OFFSET PRINTING PRESSMEN) Pathologist [facility] Glucose 84 65 - 99 mg/dL [employer] Comment: ? Fasting reference interval BUN 12 7 - 25 mg/dL [employer] vilma [place] Creatinine 0.71 0.60 - 1.00 mg/dL [employer]i [facility] eGFR 87 > OR = 60 mL/min/1.7 3m2 [employer] vilma [facility] BUN/creat ratio SEE NOTE: (calc) [facility] Comment: ?? Not Reported: BUN and Creatinine are within ?? reference range. ? Sodium 138 135 - 146 mmol/L [employer] vilma Nolan Potassium, pl 4.2 3.5 - 5.3 mmol/L [facility] Chloride 106 98 - 110 mmol/L [employer] vilma Nolan CO2 24 20 - 32 mmol/L [facility] Calcium 8.7 8.6 - 10.4 mg/dL [employer] vilma Nolan Protein, sr 6.9 6.1 - 8.1 g/dL [employer] Albumin 3.8 3.6 - 5.1 g/dL [employer] GLOBULIN 3.1 1.9 - 3.7 g/dL (calc) [facility] Alb/glob ratio 1.2 1.0 - 2.5 (calc) [facility] Bilirubin, total 0.6 0.2 - 1.2 mg/dL [facility] Alk phos 241(H) 37 - 153 U/L [facility] AST 18 10 - 35 U/L [facility] ALT (SGPT) 15 6 - 29 U/L [facility] 06/01/2024 8:47 AM OFFSET PRINTING PRESSMEN 06/01/2024 8:48 AM OFFSET PRINTING PRESSMEN Narrative [facility] - 06/03/2024 2:35 PM OFFSET PRINTING PRESSMEN FASTING:YES FASTING: YES us Selene Dooley MD LAB BLOOD ORDERAB LES Final Result [facility] [address] [place] [address] * XR Knee Left 3 Views (05/27/2024 8:54 AM OFFSET PRINTING PRESSMEN) Anatomical Region Laterality Modality Lower Extremities, Knee Left Digital Radiography 05/31/2024 9:07 AM OFFSET PRINTING PRESSMEN Narrative 05/31/2024 9:11 AM OFFSET PRINTING PRESSMEN EXAM DESCRIPTION: XR KNEE LEFT 3 VIEWS REASON FOR STUDY: pain ?? Fx f/u x 1 month ? FINDINGS: Three views submitted with comparison 05/13/2024. There is a healing inferior patellar fracture. 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 ??Trace effusion is present.. IMPRESSION: Healing inferior left patellar fracture. THIS IS AN ELECTRONICALLY VERIFIED FINAL REPORT 05/31/2024 9:11 AM - Electronically signed by ??Jayy Russell M.D. D: ??05/31/2024 9:11 AM T: Report ID: [id number] Reading Location: ??[id number] Procedure Note Jayy Russell MD - 05/31/2024 EXAM DESCRIPTION: XR KNEE LEFT 3 VIEWS REASON FOR STUDY: pain Fx f/u x 1 month FINDINGS: Three views submitted with comparison 05/13/2024. There is a healing inferior patellar fracture. There is mildpatellofemoral compartment osteoarthritis. Trace effusion is present.. IMPRESSION: Healing inferior left patellar fracture. THIS IS AN ELECTRONICALLY VERIFIED FINAL REPORT 05/31/2024 9:11 AM - Electronically signed by Jayy Russell M.D. T: Report ID: [id number] Reading Location: [id number] Jayy Malagon DO IMG XR PROCEDURES Fanny l Result * XR Knee Left 3 Views (05/13/2024 9:16 AM OFFSET PRINTING PRESSMEN) Anatomical Region Laterality Modality Lower Extremities, Knee Left Digital Radiography 05/15/2024 4:55 PM [employer]SET PR[employer]ING PRESSMEN Narrative 05/15/2024 4:56 PM OFFSET PRINTING PRESSMEN EXAM DESCRIPTION: XR KNEE LEFT 3 VIEWS REASON FOR STUDY: repeat to assess fx ?? Follow up fracture of left patella from 3 weeks ago ? FINDINGS: Three views submitted with comparison 04/29/2024. Inferior patellar pole fracture appears unchanged. ??The joint spaces otherwise appear normal. ??There is no effusion. 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 IMPRESSION: Unchanged inferior left patellar pole fracture. THIS IS AN ELECTRONICALLY VERIFIED FINAL REPORT 05/15/2024 4:56 PM - Electronically signed by ??Jayy Russell M.D. D: ??05/15/2024 4:56 PM T: Report ID: [id number] Reading Location: ??[id number] Procedure Note Jayy Russell MD - 05/15/2024 EXAM DESCRIPTION: XR KNEE LEFT 3 VIEWS REASON FOR STUDY: repeat to assess fx Follow up fracture of left patella from 3 weeks ago FINDINGS: Three views submitted with comparison 04/29/2024. Inferior patellar pole fracture appears unchanged. The joint spacesotherwise appear normal. There is no effusion. 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 IMPRESSION: Unchanged inferior left patellar pole fracture. THIS IS AN ELECTRONICALLY VERIFIED FINAL REPORT 05/15/2024 4:56 PM - Electronically signed by Jayy Russell M.D. 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
--- OUTSIDE RECORDS SUMMARY | 2024-08-10 09:26 | XMS_ITS | Clinical Summary ---
Author Organization [facility] Address [address] [place] [address] Phone Care Team Providers Care Supervisor Photoengraving Name Role Phone Franklin Morris RN Unavailable Tatyana Reynoso Primary Care Provider [phone] Allergies Active Allergy Reactions Criticality Noted Date [...] capsuleIndicatio ns:supplement Take 1 tablet by mouth bridge painter helper before breakfast Active erythromycin (ILOTYCIN) ophthalmic ointment [...] be different from the original. Lab: [facility] fx:[phone] Standing Orders: Q3: FKL, CMP, CBC, LIPID, [...] Description: Hypertension History of kidney transplant 01/21/2010 Encounters Date Type Department Care Team Description 06/17/2024 8:45 AM BUILDING CONSTRUCTION CONTRACTOR Ancillary Procedure [facility] Imaging at [address] [address] Closed nondisplaced comminuted fracture of left patella with routine healing, subsequent encounter 06/17/2024 8:30 AM BUILDING CONSTRUCTION CONTRACTOR Office Visit [facility] Sports Medicine and Primary Care at [address] [place] [address] Jayy Malagon DO Closed nondisplaced comminuted fracture of left patella with routine healing, subsequent encounter (Primary Dx) 06/01/2024 Orders Only [facility] Nephrology [address] [facility] 5th [place] [address] [place] [address] Selene Aguiar MD 05/27/2024 9:00 AM BUILDING CONSTRUCTION CONTRACTOR Ancillary Procedure [facility] Imaging at [address] [address] Closed nondisplaced comminuted fracture of left patella with routine healing, subsequent encounter 05/27/2024 8:45 AM BUILDING CONSTRUCTION CONTRACTOR Office Visit [facility] Sports Medicine and Primary Care at [address] [address] Jayy Malagon DO Closed nondisplaced comminuted fracture of left patella with routine healing, subsequent encounter (Primary Dx) 05/13/2024 9:45 AM BUILDING CONSTRUCTION CONTRACTOR Office Visit [facility] Sports Medicine and Primary Care at [address] [address] Jayy Malagon DO Acute pain of left knee (Primary Dx); Closed nondisplaced comminuted fracture of left patella with routine healing, subsequent encounter 05/13/2024 9:30 AM BUILDING CONSTRUCTION CONTRACTOR Ancillary Procedure [facility] Imaging at [address] [address] Acute pain of left knee; Closed nondisplaced comminuted fracture of left patella with routine healing, subsequent encounter from Last 3 Months Immunizations Name Administration Dates Next Due Influenza, Unspecified 04/01/2023 Pneumococcal Conjugate PCV 13 12/21/2013 Pneumococcal Polysaccharide PPV23 12/24/2015 Surgical History Surgery Date Site/Laterality Comments KIDNEY TRANSPLANT 07/06/2000 - 07/05/2001 approx 23yrs ago CATARACT EXTRACTION Bilateral OD and OS - per [facility] APPENDECTOMY 07/06/1985 - 07/05/1986 MOHS SURGERY 07/06/2013 - 07/05/2014 COLONOSCOPY ENTROPION REPAIR 12/29/2023 Bilateral REPAIR ENTROPION (Bilateral: Eye) Medical History Medical History Date Comments Chronic kidney disease Hypertension GERD (gastroesophageal reflux disease) Cancer (CMS/HCC) (HCC) Hyperlipemia Osteoporosis Family History Medical History Relation Name Comments Cancer Brother Esophageal cancer Brother Kidney disease Daughter Brain cancer Father Cancer Father Kidney disease Mother Kidney disease Mother's Brother Kidney disease Mother's Sister Cancer Paternal Grandmother Ovarian cancer Paternal Grandmother Cancer Sister Kidney disease Sister Skin cancer Sister Anesthesia problems Neg Hx Diabetes Neg Hx Glaucoma Neg Hx Macular degeneration Neg Hx Retinal detachment Neg Hx Relation Name Status Comments Brother Daughter Father Mother Mother's Brother Mother's Sister Paternal Grandmother Sister Social History Tobacco Use Types Packs/Day Years [...] on file Legal Sex Female 8:35 PM BUILDING CONSTRUCTION CONTRACTOR Gender Identity Not on file Sexual Orientation Not on file Obstetrics History Last Filed Vital Signs Vital Sign Reading Time Taken Comments Blood Pressure 129/78 06/17/2024 8:49 AM BUILDING CONSTRUCTION CONTRACTOR Pulse 77 06/17/2024 8:49 AM BUILDING CONSTRUCTION CONTRACTOR Temperature 36.5 ??C (97.7 ??F) 12/29/2023 9:10 AM CD T Respiratory Rate 16 04/29/2024 9:50 AM CDT Oxygen Saturation 93% 12/29/2023 9:30 AM CDT Inhaled Oxygen Concentration - - Weight 75.8 kg (167 lb) 06/17/2024 8:49 AM BUILDING CONSTRUCTION CONTRACTOR Height 172.7 cm (5' 8 ) 06/17/2024 8:49 AM BUILDING CONSTRUCTION CONTRACTOR Body Mass Index 25.39 06/17/2024 8:49 AM BUILDING CONSTRUCTION CONTRACTOR Plan of Treatment Health Maintenance Due Date Last Done Comments Depression Screening 1945 Hepatitis C Screening 1945 DTaP/Tdap/Td Vaccine (1 - Tdap) 1956 Hepatitis B Screening 11/20/1963 Zoster Vaccine (1 of 2) 1964 Well Visit 65+ 2010 Osteoporosis Screening-Bone Density Scan 02/26/2020 02/25/2018, 02/25/2018, 12/25/2015 Covid-19 Vaccine (3 - Modern a risk series) 10/25/2020 09/27/2020, 08/30/2020 Influenza Vaccine (#1) 2024 3, 04/10/2020, 04/08/2019, Additional history exists Fall Risk Assessment 12/28/2024 12/29/2023 Pneumococcal vaccine 65+ Completed 016, 12/21/2013, 12/15/2001 Breast Cancer Screening-Mammogram Discontinued 04/22/2019, 02/25/2018, 02/25/2018, Additional history exists Procedures Procedure Name Priority Date/Time Associated Diagnosis Comments XR KNEE LEFT 4 OR MORE VIEWS Schedule Routine, Read Routine (OP Routine) 06/17/2024 8:45 AM BUILDING CONSTRUCTION CONTRACTOR Closed nondisplaced comminuted fracture of left patella with routine healing, subsequent encounter TACROLIMUS, HIGHLY SENSITIVE, LC/MS/MS Routine 06/01/2024 8:47 AM BUILDING CONSTRUCTION CONTRACTOR COMPREHENSIVE METABOLIC PANEL Routine 06/01/2024 8:47 AM BUILDING CONSTRUCTION CONTRACTOR PHOSPHORUS Routine 06/01/2024 8:47 AM BUILDING CONSTRUCTION CONTRACTOR LIPID PANEL Routine 06/01/2024 8:47 AM BUILDING CONSTRUCTION CONTRACTOR CBC WITH AUTO DIFFERENTIAL Routine 06/01/2024 8:47 AM BUILDING CONSTRUCTION CONTRACTOR COPY(IES) SENT TO: Routine 06/01/2024 8: 47 AM BUILDING CONSTRUCTION CONTRACTOR XR KNEE LEFT 3 VIEWS Schedule Routine, Read Routine (OP Routine) 05/27/2024 8:54 AM BUILDING CONSTRUCTION CONTRACTOR Closed nondisplaced comminuted fracture of left patella with routine healing, subsequent encounter XR KNEE LEFT 3 VIEWS Schedule Routine, Read Routine (OP Routine) 05/13/2024 9:16 AM BUILDING CONSTRUCTION CONTRACTOR Acute pain of left knee Closed nondisplaced comminuted fracture of left patella with routine healing, subsequent encounter from Last 3 Months Results * XR Knee Left 4 or More Views (06/17/2024 8:45 AM BUILDING CONSTRUCTION CONTRACTOR) Anatomical Region Laterality Modality Lower Extremities, Knee Left Digital Radiography 06/18/2024 10:5 0 AM BUILDING CONSTRUCTION CONTRACTOR Narrative 06/18/2024 10:51 AM BUILDING CONSTRUCTION CONTRACTOR EXAM DESCRIPTION: XR KNEE LEFT 4 OR [...] 10:51 AM - Electronically signed by ??Jayy Russell M.D. D: ??06/18/2024 10:51 AM T: Report ID: [id number] Reading Location: ??[id number] Procedure Note Jayy Russell MD - 06/18/2024 [...] by Jayy Russell M.D. T: Report ID: [id number] Reading Location: [place] [address] Jayy Malagon DO IMG XR PROCEDURES Fanny l Result * Tacrolimus, Highly Sensitive, LC/MS/MS (06/01/2024 8:47 AM BUILDING CONSTRUCTION CONTRACTOR) Tacrolimus, Highly Sensitive, LC/MS/MS 6.9 mcg/L [facility] Comment: No definitive therapeutic or toxic ranges have been established. Optimal blood drug levels are influenced by type of transplant, patient response, time post- transplant, co-administration of other drugs, and drug formulation. The following trough range is a suggested guideline: 5.0-20.0 mcg/L. 06/01/2024 8:47 AM BUILDING CONSTRUCTION CONTRACTOR 06/01/2024 8:48 AM BUILDING CONSTRUCTION CONTRACTOR Narrative [facility] - 06/03/2024 2:35 PM BUILDING CONSTRUCTION CONTRACTOR FASTING:YES FASTING: YES Selene Dooley MD LAB BLOOD ORDERAB LES Final Result [facility] [address] [place] [address] * COPY(IES) SENT TO: (06/01/2024 8:47 AM BUILDING CONSTRUCTION CONTRACTOR) COPY(IES) SENT TO: [facility] Comment: ?[facility] - COPY TO ACCT ?[address] ?[place] [address] 06/01/2024 8:47 AM BUILDING CONSTRUCTION CONTRACTOR 06/01/2024 8:48 AM BUILDING CONSTRUCTION CONTRACTOR Narrative [facility] - 06/03/2024 2:35 PM BUILDING CONSTRUCTION CONTRACTOR FASTING:YES FASTING: YES us Selene Dooley MD LAB BLOOD ORDERAB LES Final Result [facility] * (ABNORMAL) CBC with auto differential (06/01/2024 8:47 AM BUILDING CONSTRUCTION CONTRACTOR) [facility] WBC 9.2 3.8 - 10.8 Thousand/u L [...] t [place] Monocytes 10.2 % [facility] Eosinophils 4.1 % [facility] Basophils 0.7 % [facility] 06/01/2024 8:47 AM BUILDING CONSTRUCTION CONTRACTOR 06/01/2024 8:48 AM BUILDING CONSTRUCTION CONTRACTOR Narrative [facility] - 06/03/2024 2:35 PM BUILDING CONSTRUCTION CONTRACTOR FASTING:YES FASTING: YES Selene Dooley MD LAB BLOOD ORDERAB LES Final Result Performing Organization Address [facility] Co de Phone Number [facility] [address] [place] [address] * Phosphorus (06/01/2024 8:47 AM BUILDING CONSTRUCTION CONTRACTOR) Pathologist [facility] Phosphorus, sr 3.6 2.1 - 4.3 mg/dL [facility] 06/01/2024 8:47 AM BUILDING CONSTRUCTION CONTRACTOR 06/01/2024 8:48 AM BUILDING CONSTRUCTION CONTRACTOR Narrative [facility] - 06/03/2024 2:35 PM BUILDING CONSTRUCTION CONTRACTOR FASTING:YES FASTING: YES Selene Dooley MD LAB BLOOD ORDERAB LES Final Result Performing Organization Address [facility] Co de Phone Number [facility] [address] [place] [address] * (ABNORMAL) Lipid panel (06/01/2024 8:47 AM BUILDING CONSTRUCTION CONTRACTOR) [facility] Cholesterol 120 <200 mg/dL [facility] HDL 49(L) > OR = 50 mg/dL [facility] Triglycerides 81 <150 mg/dL [facility] LDL 55 mg/dL (calc) [facility] Comment: Reference range: <100 Desirable range <100 mg/dL for primary prevention; ?? <70 mg/dL for patients with CHD or diabetic patients with > or = 2 CHD risk factors. LDL-C is now calculated using the Alis calculation, which is a validated novel method providing better accuracy than the Friedewald equation in the estimation of LDL-C. Yogesh SS et al. DONNA. 2013;310(19): 5660-6962 (http://education.Striped Sail/faq/CVQ659) Chol/HDL ratio 2.4 <5.0 (calc) [facility] [place] Non-HDL, (LDL+VLDL) 71 <130 mg/dL (calc) [facility] Comment: For patients with diabetes plus 1 major ASCVD risk factor, treating to a non-HDL-C goal of <100 mg/dL (LDL-C of <70 mg/dL) is considered a therapeutic option. 06/01/2024 8:47 AM BUILDING CONSTRUCTION CONTRACTOR 06/01/2024 8:48 AM BUILDING CONSTRUCTION CONTRACTOR Narrative [facility] - 06/03/2024 2:35 PM BUILDING CONSTRUCTION CONTRACTOR FASTING:YES FASTING: YES us Selene Dooley MD LAB BLOOD ORDERAB LES Final Result [facility] [address] [place] [address] * (ABNORMAL) Comprehensive metabolic panel (06/01/2024 8:47 AM BUILDING CONSTRUCTION CONTRACTOR) [facility] Glucose 84 65 - 99 mg/dL [facility] Comment: ? Fasting reference interval BUN 12 7 - 25 mg/dL [facility] Creatinine 0.71 0.60 - 1.00 mg/dL [facility] vilma Nolan eGFR 87 > OR = 60 mL/min/1.7 3m2 [facility] [place] BUN/creat ratio SEE NOTE: (calc) [facility] Comment: ?? Not Reported: BUN and Creatinine are within ?? reference range. ? Sodium 138 135 - 146 mmol/L [facility] Potassium, pl 4.2 3.5 - 5.3 mmol/L [facility] Chloride 106 98 - 110 mmol/L [facility] CO2 24 20 - 32 mmol/L [facility] vil[facility] Calcium 8.7 8.6 - 10.4 mg/dL [facility] Protein, sr 6.9 6.1 - 8.1 g/dL [facility] vilma Nolan Albumin 3.8 3.6 - 5.1 g/dL [facility] GLOBULIN 3.1 1.9 - 3.7 g/dL (calc) [facility] vilma [facility] Alb/glob ratio 1.2 1.0 - 2.5 (calc) [facility] vil[facility] Bilirubin, total 0.6 0.2 - 1.2 mg/dL [facility] Alk phos 241(H) 37 - 153 U/L [facility] AST 18 10 - 35 U/L [facility] ALT (SGPT) 15 6 - 29 U/L [facility] 06/01/2024 8:47 AM BUILDING CONSTRUCTION CONTRACTOR 06/01/2024 8:48 AM BUILDING CONSTRUCTION CONTRACTOR Narrative [facility] - 06/03/2024 2:35 PM BUILDING CONSTRUCTION CONTRACTOR FASTING:YES FASTING: YES us Selene Dooley MD LAB BLOOD ORDERAB LES Final Result [facility] [address] [place] [address] * XR Knee Left 3 Views (05/27/2024 8:54 AM BUILDING CONSTRUCTION CONTRACTOR) Anatomical Region Laterality Modality Lower Extremities, Knee Left Digital Radiography 05/31/2024 9:07 AM BUILDING CONSTRUCTION CONTRACTOR Narrative 05/31/2024 9:11 AM BUILDING CONSTRUCTION CONTRACTOR EXAM DESCRIPTION: XR KNEE LEFT 3 VIEWS [...] D: ??05/31/2024 9:11 AM T: Report ID: [id number] Reading Location: ??[id number] Procedure Note Jayy Russell MD - 05/31/2024 [...] by Jayy Russell M.D. T: Report ID: [id number] Reading Location: [place] [address] Jayy Malagon DO IMG XR PROCEDURES Fanny l Result * XR Knee Left 3 Views (05/13/2024 9:16 AM BUILDING CONSTRUCTION CONTRACTOR) Anatomical Region Laterality Modality Lower Extremities, Knee Left Digital Radiography 05/15/2024 4:55 PM BUILDING CONSTRUCTION CONTRACTOR Narrative 05/15/2024 4:56 PM BUILDING CONSTRUCTION CONTRACTOR EXAM DESCRIPTION: XR KNEE LEFT 3 VIEWS [...] D: ??05/15/2024 4:56 PM T: Report ID: [id number] Reading Location: ??[id number] Procedure Note Jayy Russell MD - 05/15/2024 [...] by Jayy Russell M.D. T: Report ID: [id number] Reading Location: [place] [address] Jayy Malagon DO IMG XR PROCEDURES Fanny l Result from Last 3 Months Insurance MEDICARE [facility] MEDICARE MEDICARE [facility] Care Teams Supervisor Photoengraving Relationship Specialty Start Date End Date Tatyana Reynoso PA [address] [facility] [address] [place] [address] PCP - General Slip Cover Operator 11/23/23 Franklin Morris, RN [address] [facility] [address] [place] [address] Salesperson [employer] 12/08/17
--- OUTSIDE RECORDS SUMMARY | 2024-08-10 09:26 | XMS_ITS ---
Author Organization [facility] Address [address] [place] [address] Phone Care Team Providers Care Orthopedic Surgeon Name Role Phone Franklin Morris RN Unavailable Tatyana Reynoso Primary Care Provider [phone] Transplant Episode Kidney Recipient [facility] ([place], [place]) [facility] Organ Received: Left Kidney Transplanted on 06/05/2002 Marked as Active Follow-up on 06/05/2002 Kidney CoordinatorFranklin Morris RN Fax: N/A Email: N/A [place] Organ Diagnosis Organ Primary Contributory Kidney Polycystic Kidneys Retransplant Diagnosis Organ Primary Contributory Kidney Polycystic Kidneys Donor Information Organ ABO Source Meets Risk Criteria HLA Match Mismatches Cross Match Left Kidney Transplanted O DBD A: B: DR: T cell (Negative) T cell (Negative) B cell (Positive) B cell (Positive) Left Kidney Donor Serology Results Anti-CMV CMV IgG: Positive EBV IgG No results on file Anti-HBcAb HBC Total: Negative HBsAg HBsAg: Negative HBV DNA No results on file Anti-HCV HCV: Negative Anti-HIV I/II No results on file Anti-HTLV I/II HTLV: Negative RPR/VDRL RPR: Negative EBV IgM No results on file HBsAb No results on file EBNA No results on file SARS CoV-2 No results on file Care Team Name Role Phone Fax Email Franklin Morris RN Kidney Coordinator [phone] N/A N/A Kathy Jayy Hector, RN Secondary Coordinator Secondary Kidney Coordinator N/A N/A N/A Soraida Stringer Primary Tangled Yarn Spool Straightener N/A N/A N/A Franklin Morris typerSupervisor [place] [phone] N/A N/A Events Post-Transplant Pre-Transplant Admitted: 06/05/2002 Referred: 12/08/2000 Transplanted: 06/05/2002 Evaluation began: 1 Discharged: 06/09/2002 UNOS qualified: 06/19/2001 Center waitlisted: 1
--- OUTSIDE RECORDS SUMMARY | 2024-08-10 09:27 | XMS_ITS | Encounter Summary ---
Author Organization [facility] Address [address] [facility] [place] [address] Phone Care Team Providers Care Equity Research Analyst Name Role Phone Tatyana Reynoso Primary Care Provider + Nilsa Torres Unavailable Unavailable Reason for Visit * Reason Comments Medication Refill Encounter Details Date Type Department Care Team (Late st Contact Info) Description 06/15/2023 Refill [facility] [address] [place] [address] Tatyana Reynoso PAC [address] [place] [address] Medication Refill Social History Tobacco Use Types Packs/Day Years Used Date Smoking Tobacco: Never Smokeless Tobacco: Never Alcohol Use Standard Drinks/Week Comments No 0 (1 standard drink = 0.6 oz pur e alcohol) PHQ-2 Answer Date Recorded Total Score - Questions 1-9 0 12/2020 Comments No Sex and Gender Information Value Date Recorded Sex Assigned at Not on file Legal Sex Female 9:35 PM CDT Gender Identity Not on file Sexual Orientation Not on file documented as of this encounter Miscellaneous Notes * Telephone Encounter - Nneka Vela RN - 06/15/2023 1:28 PM CST Medication failed the protocol, provider to review and approve the medication order if appropriate. Requested Prescriptions Pending Prescriptions Disp Refills amLODIPine (NORVASC) 10 MG Tablet [Pharmacy Med Name: AMLODIPINE BESYLATE 10 MG TAB] 90 Tablet 0 Sig: TAKE 1 TABLET BY MOUTH EVERY DAY Calcium-Channel Blockers Protocol Failed - 06/15/2023 12:47 AM Failed - BP on record in the past year Clinician-entered: BP Readings from Last 3 Encounters: 06/11/22 118/72 06/10/21 126/70 02/21/20 143/77 Patient-entered: No data recorded Passed - Visit with relevant provider in past 12 months or upcoming 90 days Recent Visits No visits were found meeting these conditions. Showing recent visits within past 365 days and meeting all other requirements Future Appointments Date Type Provider Dept 07/14/23 Appointment [facility] Showing future appointments within next 90 days and meeting all other requirements OUTFIT SUPERVISOR documented in this encounter Plan of Treatment Upcoming Encounters Date Type Department Care Team (Late st Contact Info) Description 07/19/2025 11:00 AM HULL OUTFIT SUPERVISOR Office Visit [facility] [address] [place] [address] Tatyana Reynoso [address] [place] [address] documented as of this encounter Visit Diagnoses Diagnosis Essential hypertension Unspecified essential hypertension documented in this encounter Additional Health Concerns Assessment Noted Time PHQ-9 Depression Total Score: 0 11/03/19 4:00 PM CDT documented as of this encounter Care Teams Equity Research Analyst Relationship Specialty Start Date End Date Tatyana Reynoso [address] [place] [address] PCP - General Physician Plateman 09/22/17 Nilsa Torres 11/24/23 11/24/23 documented as of this encounter
== END 2024-08-10 08:55 | disposition home or self-care (01) ==
PROVIDERS: PCP Physician Assistant; Visit Provider Nurse Practitioner Women's Health
DX: Z12.31 Encounter for screening mammogram for malignant neoplasm of breast (principal); M85.89 Other specified disorders of bone density and structure, multiple sites; Z78.0 Asymptomatic menopausal state; Z13.820 Encounter for screening for osteoporosis
CPT/HCPCS: 77063; 77067; 77080